=== PATIENT | male | born 1960 | race Caucasian/White ===

== ENCOUNTER 2019-05-26 15:47 | Emergency (ER) | payer MEDICAID, MEDICARE ==
[~2019-05-26] VITALS: Ht 182.9 cm; Wt 89.0 kg
[2019-05-26 15:52] VITALS: BP 144/91
[2019-05-26] MEDS ORDERED: ondansetron 4mg rapidly disintigrating tab PO ONE (16:50)
[2019-05-26] MEDS ORDERED: HYDROcodone/acetaminophen 10/325mg tab PO ONE (16:50)
[2019-05-26] MEDS ORDERED: HYDR-3965 PO (17:18)
[2019-05-26] MEDS ORDERED: ONDA4TAB6 PO (17:18)
--- NOTE | 2019-05-26 17:27 | NUR ---
Patient requested that daughter sign discharge paperwork in his presence because of dominant hand injury.
== END 2019-05-26 17:29 | disposition home or self-care (01) ==
LOC: ER 15:47
DX: S59.201A Unspecified physeal fracture of lower end of radius, right arm, initial encounter for closed fracture (principal); F41.9 Anxiety disorder, unspecified; Z60.2 Problems related to living alone; Z56.0 Unemployment, unspecified; Z88.8 Allergy status to other drugs, medicaments and biological substances; Z79.899 Other long term (current) drug therapy; W11.XXXA Fall on and from ladder, initial encounter; Y93.89 Activity, other specified; Y92.89 Other specified places as the place of occurrence of the external cause; Y99.8 Other external cause status
CPT/HCPCS: 29125; 73110; 99283

== ENCOUNTER 2020-03-22 20:39 | Emergency (ER) | payer MEDICARE ==
[~2020-03-22] VITALS: Ht 182.9 cm; Wt 90.9 kg
[~2020-03-22 20:39] MED LIST: ONDA4TAB6 PO
[2020-03-22] MEDS ORDERED: proCHLORperazine 10 MG/2 ml inj IV ONE (22:25)
[2020-03-22] MEDS ORDERED: acetaminophen 325mg tablet PO ONE (22:25)
[2020-03-22] MEDS ORDERED: diphenhydrAMINE 50 mg/ml inj IV ONE (22:25)
[2020-03-22] MEDS ORDERED: normal saline 1000ml 1,000 ML IV ONE (22:25)
[2020-03-22] MEDS ORDERED: ketorolac tromethamine 15mg/ml inj. IV ONE (23:10)
[2020-03-22 23:36] VITALS: BP 171/109
== END 2020-03-23 00:27 | disposition home or self-care (01) ==
LOC: ER 20:40
DX: G43.909 Migraine, unspecified, not intractable, without status migrainosus (principal); F17.200 Nicotine dependence, unspecified, uncomplicated; Z56.0 Unemployment, unspecified; Z60.9 Problem related to social environment, unspecified; Z88.8 Allergy status to other drugs, medicaments and biological substances; Z79.899 Other long term (current) drug therapy
CPT/HCPCS: 70450; 96361; 96374; 96375; 99284; J0780; J1200; J1885; J7030

== ENCOUNTER 2021-06-09 15:26 | Emergency (ER) | payer MEDICARE ==
[~2021-06-09] VITALS: Ht 182.9 cm; Wt 95.5 kg
[2021-06-09 15:52] VITALS: BP 169/93
== END 2021-06-09 18:40 | disposition home or self-care (01) ==
LOC: ER 15:27
DX: S89.92XA Unspecified injury of left lower leg, initial encounter (principal); M25.462 Effusion, left knee; M25.562 Pain in left knee; F41.9 Anxiety disorder, unspecified; Z60.2 Problems related to living alone; Z56.0 Unemployment, unspecified; Z88.8 Allergy status to other drugs, medicaments and biological substances; Z79.899 Other long term (current) drug therapy; X58.XXXA Exposure to other specified factors, initial encounter; Y93.89 Activity, other specified; Y92.89 Other specified places as the place of occurrence of the external cause; Y99.8 Other external cause status
CPT/HCPCS: 73564; 99284

== ENCOUNTER 2021-12-23 04:03 | Emergency (ER) | payer MEDICARE ==
[~2021-12-23] VITALS: Ht 185.4 cm; Wt 90.9 kg
[2021-12-23 04:55] VITALS: BP 150/90
[2021-12-23 05:08] LABS: BASOPHILS # (AUTO) 0.1 X10'3 (0-0.2); BASOPHILS % (AUTO) 1.5 % (0-1); EOSINOPHILS # (AUTO) 0.2 X10'3 (0-0.9); EOSINOPHILS % (AUTO) 2.2 % (0-6); HEMATOCRIT 50.1 % (42.0-52.0); HEMOGLOBIN 16.4 g/dl (14.0-17.9); LYMPHOCYTES # (AUTO) 1.8 X10'3 (1.1-4.8); LYMPHOCYTES % (AUTO) 22.3 % (21-51); MEAN CORPUSCULAR HEMOGLOBIN 28.2 PG (27.0-31.0); MEAN CORPUSCULAR HGB CONC 32.7 g/dL (33.0-36.5); MEAN CORPUSCULAR VOLUME 86.1 FL (78-98); MEAN PLATELET VOLUME 7.3 FL (7.4-10.4); MONOCYTES # (AUTO) 0.5 X10'3 (0-0.9); MONOCYTES % (AUTO) 6.2 % (2-12); NEUTROPHILS # (AUTO) 5.6 X10'3 (1.8-7.7); NEUTROPHILS % (AUTO) 67.8 % (42-75); PLATELET COUNT 232 X10'3 (140-440); RED BLOOD COUNT 5.81 X10'6 (4.70-6.10); RED CELL DISTRIBUTION WIDTH 14.4 % (11.5-14.5); WHITE BLOOD COUNT 8.2 X10'3 (4.5-11.0)
[2021-12-23] MEDS ORDERED: LEVO25TA7 PO (05:13)
[2021-12-23] MEDS ORDERED: AMPH30TA3 PO (05:13)
[2021-12-23 05:19] LABS: ALANINE AMINOTRANSFERASE 25 U/L (12-78); ALBUMIN 3.6 G/DL (3.4-5.0); ALBUMIN/GLOBULIN RATIO 1.1 (1.1-1.5); ALKALINE PHOSPHATASE 78 IU/L (46-116); ANION GAP 3 (8-16); ASPARTATE AMINO TRANSFERASE 18 U/L (10-37); BILIRUBIN,TOTAL 0.5 MG/DL (0.1-1.0); BLOOD UREA NITROGEN 19 MG/DL (7-18); BUN/CREATININE RATIO 15.7 (5.4-32.0); CALCIUM 8.8 MG/DL (8.5-10.1); CHLORIDE 106 MMOL/L (99-107); CREATININE 1.21 MG/DL (0.60-1.10); GLUCOSE 77 MG/DL (70-104); SODIUM 139 MMOL/L (135-145); TOTAL CARBON DIOXIDE 29.9 MMOL/L (24-32); TOTAL PROTEIN 6.9 G/DL (6.4-8.2); eGFR 61 ML/MIN
[2021-12-23] MEDS ORDERED: LORazepam 1 MG tablet PO ONE (07:15)
[2021-12-23] MEDS ORDERED: LORA-269 PO (08:44)
== END 2021-12-23 09:15 | disposition home or self-care (01) ==
LOC: ER 04:04
DX: F41.9 Anxiety disorder, unspecified (principal); G43.909 Migraine, unspecified, not intractable, without status migrainosus; E03.9 Hypothyroidism, unspecified; F17.200 Nicotine dependence, unspecified, uncomplicated; Z88.8 Allergy status to other drugs, medicaments and biological substances; Z56.0 Unemployment, unspecified
CPT/HCPCS: 36415; 71045; 80053; 83880; 84443; 84484; 85025; 93005; 99285; J7030

== ENCOUNTER 2021-12-23 20:33 | Emergency (ER) | payer MEDICARE ==
[~2021-12-23] VITALS: Ht 182.9 cm; Wt 90.9 kg
[~2021-12-23 20:33] MED LIST changes: +AMPH30TA3 PO; +LEVO25TA7 PO; +LORA-269 PO
[2021-12-24] MEDS ORDERED: LORazepam 1 MG tablet PO ONE (00:05)
[2021-12-24] MEDS ORDERED: diphenhydrAMINE 25mg capsule PO ONE (00:05)
[2021-12-24 00:33] VITALS: BP 164/117
== END 2021-12-24 00:41 | disposition home or self-care (01) ==
LOC: ER 20:34
DX: F41.9 Anxiety disorder, unspecified (principal); G43.909 Migraine, unspecified, not intractable, without status migrainosus; Z88.8 Allergy status to other drugs, medicaments and biological substances; Z56.0 Unemployment, unspecified
CPT/HCPCS: 99283; Q0163

== ENCOUNTER 2021-12-25 05:48 | Emergency (ER) | payer MEDICARE ==
[~2021-12-25] VITALS: Ht 182.9 cm; Wt 95.0 kg
[2021-12-25 06:29] VITALS: BP 160/98
== END 2021-12-25 16:00 | disposition left against medical advice (07) ==
LOC: ER 05:48
DX: Z76.0 Encounter for issue of repeat prescription (principal); Z53.21 Procedure and treatment not carried out due to patient leaving prior to being seen by health care provider